=== PATIENT | female | born 2000 | race African-American/Black ===

== ENCOUNTER 2023-02-07 15:59 | Emergency (ER) | payer MEDICAID, OTHER ==
[2023-02-07] MEDS ORDERED: Ibuprofen 200 MG TAB ONE (20:36)
== END 2023-02-07 21:16 | disposition home or self-care (01) ==
LOC: CSHERS 15:59
DX: S93.401A Sprain of unspecified ligament of right ankle, initial encounter (principal); W19.XXXA Unspecified fall, initial encounter